=== PATIENT | female | born 1975 | race American Indian/Alaskan Native ===

== ENCOUNTER 2017-04-13 13:17 | Emergency (ER) | payer OTHER ==
[2017-04-13 13:22] VITALS: TEMP 98
[2017-04-13] MEDS ORDERED: Albuterol-Ipratrop 3 mg / 0.5 (3 ml) UD IH STA ×2 (13:46→16:44)
[2017-04-13] MEDS ORDERED: Albuterol-Ipratrop 3 mg / 0.5 (3 ml) UD ONE ×2 (14:02→16:52)
[2017-04-13 14:03] LABS: BASO % 0.9 % (0.0-2.0); EOS # 0.5 K/uL (0.0-0.7); EOS % 8.6 % (0.0-4.0); HEMOGLOBIN 9.7 g/dL (11.0-16.0); LYMPH % 37.9 % (20.0-40.0); MEAN CELL VOLUME 85.4 fL (81.0-99.0); MEAN CORPUSCULAR HEMOGLOBIN 27.7 pg (27.0-31.0); MEAN CORPUSCULAR HGB CONC 32.5 g/dL (33.0-37.0); MEAN PLATELET VOLUME 7.9 fL (7.2-11.7); MONO # 0.4 K/uL (0.0-0.8); MONO % 7.7 % (0.0-10.0); NEUT # 2.4 K/uL (1.8-7.0); NEUT % 44.9 % (50.0-75.0); RBC 3.51 Mil/uL (3.80-5.20); RED CELL DISTRIBUTION WIDTH 16.4 % (11.5-14.5); WHITE BLOOD COUNT 5.3 K/uL (4.8-10.8)
[2017-04-13 14:10] LABS: ALBUMIN 3.3 g/dL (3.5-5.0)
[2017-04-13 14:13] LABS: ALB/GLOB RATIO 1.1 (1.0-2.1); ALT/SGPT 37 U/L (9-52); AST/SGOT 40 U/L (14-36); BLOOD UREA NITROGEN 12 mg/dL (7-17); GFR AFRICAN-AMERICAN > 60; GFR NON-AFRICAN AMERICAN > 60
[2017-04-13 14:14] LABS: CALCIUM 8.1 mg/dl (8.6-10.4)
[2017-04-13 14:17] LABS: INR 2.6
[2017-04-13 14:18] LABS: PROTHROMBIN TIME 30.5 SECONDS (9.7-12.2)
--- NOTE | 2017-04-13 14:38 | C.PDOC ---
History Of Present Illness Pt states she accidentally cut her right palm on an exposed nail in the headboard of her bed. 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) Current Symptoms Are (Timing): Still Present Location Of Injury: Right: Hand (Palm) Severity: Mild Additional History Per: Prior Records Past Medical History Reviewed: Historical Data, Nursing Documentation, Vital Signs Vital Signs: Last Vital Signs Temp 98 F 04/13/17 13:20 Pulse 71 04/13/17 17:17 Resp 14 04/13/17 17:17 BP 140/86 04/13/17 17:17 Pulse Ox 97 04/13/17 17:17 - Medical History PMH: COPD, Deep Vein Thrombosis Other PMH: on Methadone Family History: States: Unknown Family Hx - Social History Hx Tobacco Use: Yes Hx Alcohol Use: No Hx Substance Use: No - Immunization History Hx Tetanus Toxoid Vaccination: No Hx Influenza Vaccination: No Hx Pneumococcal Vaccination: No Review Of Systems Constitutional: Negative for: Fever Cardiovascular: Negative for: Chest Pain Respiratory: Negative for: Hemoptysis Gastrointestinal: Negative for: Vomiting Musculoskeletal: Negative for: Neck Pain Neurological: Negative for: Weakness Psych: Negative for: Suicidal ideation Physical Exam - Physical Exam Appears: Non-toxic, No Acute Distress, Other (Appears under influence of opiate) Skin: Normal Color, Warm, Dry Head: Atraumatic, Normacephalic Eye(s): bilateral: PERRL (but small), EOMI Neck: Normal ROM, No Midline Cervical Tenderness, No Step Off Deformity, Supple Chest: Symmetrical, No Deformity Cardiovascular: Rhythm Regular Respiratory: No Accessory Muscle Use, Wheezing Gastrointestinal/Abdominal: Soft, No Tenderness Extremity: Normal ROM Neurological/Psych: Oriented x3, Normal Motor, Normal Sensation, Slow To Respond With Command ED Course And Treatment - Laboratory Results Result Diagrams: 04/13/17 13:58 04/13/17 13:58 Interpretation Of Abnormal: INR therapeutic O2 Sat by Pulse Oximetry: 100 Pulse Ox Interpretation: Normal - Radiology CXR: Interpreted by Me, Viewed By Me CXR Interpretation: Yes: No Acute Disease Progress Note: Pt is now AAOx3. Steady gait. She denies SOB and wants to go home right now. Reassessment Condition: Improved Laceration - Laceration Repair Right hand Wound Length (In cm): 1 Description Of Wound: Linear Wound Cleansed With: Sterile Saline Wound Examination: No FB With Wound Exploration, No Tendon Injury With Wound Exploration Wound Closure: Skin Glue Wound Complexity: Simple Disposition Counseled Patient/Family Regarding: Studies Performed, Diagnosis, Need For Followup, Smoking Cessation - Disposition Disposition: HOME/ ROUTINE Disposition Time: 17:43 Condition: IMPROVED Additional Instructions: Stop smoking. Follow up with your doctor within 2-3 days for a wound check. Return to the ER if you develop fever, redness, swelling, pus drainage, shortness of breath, worsening of symptoms or if you have any other concerns. Instructions: Laceration (ED), Skin Adhesive Care (ED) Forms: [employer] (Urdu) - Clinical Impression Clinical Impression: Laceration of skin of right palm
[2017-04-13 17:18] VITALS: RESP 14
[2017-04-13 17:24] VITALS: BP 140/86; PULSE 71
[2017-04-13 17:45] VITALS: O2SAT 100
--- NOTE | 2017-04-13 18:27 | RAD ---
HISTORY: Wheezing COMPARISON: None available. TECHNIQUE: Chest, one view. FINDINGS: LUNGS: No focal consolidation. Bilateral 16 mm nodular densities, likely nipple shadows. Please note that chest x-ray has limited sensitivity for the detection of pulmonary masses. PLEURA: No significant pleural effusion identified. No definite pneumothorax . CARDIOVASCULAR: The cardiomediastinal silhouette appears within normal limits of size. OSSEOUS STRUCTURES: No acute osseous abnormality identified. VISUALIZED UPPER ABDOMEN: Unremarkable. OTHER FINDINGS: None. IMPRESSION: No acute findings. See above.
== END 2017-04-13 17:50 | disposition home or self-care (01) ==
LOC: C.ER 13:17
DX: S61.411A Laceration without foreign body of right hand, initial encounter (principal); W45.0XXA Nail entering through skin, initial encounter; Y93.89 Activity, other specified; Y92.003 Bedroom of unspecified non-institutional (private) residence as the place of occurrence of the external cause; Z23 Encounter for immunization

== ENCOUNTER 2017-10-30 18:33 | Emergency (ER) | payer OTHER ==
[2017-10-30] MEDS ORDERED: Iodixanol 320 mg/ml 150 ml Bottle IV ONE (18:43)
[2017-10-30 18:53] LABS: BASO % 0.8 % (0.0-2.0); EOS # 0.2 K/uL (0.0-0.7); EOS % 4.9 % (0.0-4.0); LYMPH % 39.1 % (20.0-40.0); MEAN CELL VOLUME 85.2 fL (81.0-99.0); MEAN CORPUSCULAR HEMOGLOBIN 28.5 pg (27.0-31.0); MEAN CORPUSCULAR HGB CONC 33.4 g/dL (33.0-37.0); MEAN PLATELET VOLUME 7.7 fL (7.2-11.7); MONO # 0.4 K/uL (0.0-0.8); MONO % 8.7 % (0.0-10.0); NEUT # 2.3 K/uL (1.8-7.0); NEUT % 46.5 % (50.0-75.0); RBC 4.15 Mil/uL (3.80-5.20); RED CELL DISTRIBUTION WIDTH 15.7 % (11.5-14.5); WHITE BLOOD COUNT 5.1 K/uL (4.8-10.8)
[2017-10-30 19:01] LABS: HEMOGLOBIN 11.8 g/dL (11.0-16.0)
[2017-10-30 19:05] LABS: ALB/GLOB RATIO 1.2 (1.0-2.1); ALBUMIN 3.7 g/dL (3.5-5.0); ALT/SGPT 25 U/L (9-52); AST/SGOT 25 U/L (14-36); BLOOD UREA NITROGEN 10 mg/dL (7-17); CALCIUM 9.1 mg/dl (8.6-10.4); GFR AFRICAN-AMERICAN > 60; GFR NON-AFRICAN AMERICAN > 60; HDL CHOLESTEROL 57 mg/dL (30-70)
[2017-10-30 19:06] LABS: INR 1.1; PROTHROMBIN TIME 12.1 SECONDS (9.7-12.2)
[2017-10-30 19:16] LABS: LDL CHOLESTEROL 75 mg/dL (0-129)
[2017-10-30] MEDS ORDERED: Aspirin 325 mg EC Tablets PO STA (19:40)
--- NOTE | 2017-10-30 19:54 | C.PDOC ---
History Of Present Illness 42 year old female, with PMHx of cocaine abuse, renal disease, DVT on Coumadin, is brought to ED via ambulance from home at 17:30 for difficulty walking, right arm and leg weakness, and left facial droop in field, which is noticed by daughter who came home from school/work to find her this way. Last seen normal neuro exam approx 0900 before daughter left for school. Pt denies any headache , dizziness, or any other associated symptoms at this time. Pt denies substance abuse. h/o cocaine abuse. Time Seen by Provider: 10/30/17 18:47 Chief Complaint (Nursing): Weakness/Neurological Deficit History Per: Patient, EMS History/Exam Limitations: no limitations Onset/Duration Of Symptoms: Sudden Onset Current Symptoms Are (Timing): Still Present Recent travel outside of the [place]: No Additional History Per: Family - Symptoms Of CVA Associated Symptoms: Decreased Ability To Walk Character Of Deficits: Right: Weakness, Arm: Weakness, Leg: Weakness Past Medical History Reviewed: Historical Data, Nursing Documentation, Vital Signs Vital Signs: Last Vital Signs Temp 97.6 F 10/30/17 21:05 Pulse 55 L 10/30/17 21:05 Resp 16 10/30/17 21:05 BP 156/76 H 10/30/17 21:05 Pulse Ox 91 L 10/31/17 00:36 - Medical History PMH: COPD, Deep Vein Thrombosis Family History: States: Unknown Family Hx - Social History Hx Tobacco Use: Yes Hx Alcohol Use: No Hx Substance Use: No - Immunization History Hx Tetanus Toxoid Vaccination: No Hx Influenza Vaccination: No Hx Pneumococcal Vaccination: No Review Of Systems Constitutional: Negative for: Fever, Chills Cardiovascular: Negative for: Chest Pain, Palpitations Respiratory: Negative for: Cough, Shortness of Breath Gastrointestinal: Negative for: Nausea, Vomiting, Abdominal Pain Neurological: Positive for: Weakness (right arm and leg), Other (facial droop). Negative for: Headache, Dizziness Physical Exam - Physical Exam Appears: Non-toxic, No Acute Distress, Other (black female, appears older than stated age) Skin: Normal Color, Warm, Dry Head: Atraumatic, Normacephalic, Other (moderate right facial droop) Eye(s): bilateral: Normal Inspection, PERRL, EOMI Oral Mucosa: Moist Neck: Normal ROM, Supple Chest: Symmetrical Cardiovascular: Rhythm Regular, No Murmur Respiratory: Normal Breath Sounds, No Rales, No Rhonchi, No Wheezing Gastrointestinal/Abdominal: Soft, No Tenderness Extremity: Capillary Refill (less than 2 seconds), No Deformity, Other (1/5 strength in right arm and leg) Neurological/Psych: Oriented x3 ED Course And Treatment - Laboratory Results Result Diagrams: 10/30/17 18:49 10/30/17 18:49 ECG: Interpreted By Me, Viewed By Me ECG Rhythm: Sinus Rhythm Interpretation Of ECG: T wave inversions in lead II, III, V4-V6 Rate From EC (bpm) O2 Sat by Pulse Oximetry: 91 - CT Scan/US Head Other Rad Studies (CT/US): Interpreted By Me, Read By Radiologist CT/US Interpretation: IMPRESSION: No signs of territorial infarction, focal mass or midline shift. No evidence of edema. Nonspecific small 4 mm hyperdense focus of the right vertex which could represent chronic change,. artifact, although small focal area bleed in this area cannot be excluded. Consider [address] followup to ensure stability. CTA Head Other Rad Studies (CT/US): Interpreted By Me, Read By Radiologist CT/US Interpretation: IMPRESSION: Complete occlusion of the left MCA M1 segment with diminished flow to the second and third order. branches. CTA Neck Other Rad Studies (CT/US): Interpreted By Me, Read By Radiologist CT/US Interpretation: IMPRESSION: No vascular abnormalities no carotid stenosis or dissection. Nonspecific groundglass changes of the. left apex which may represent focal pneumonitis scar. Additional spiculated density is only partially visualized measuring 8.9 mm in the left apex. Left thyroid lobe indeterminate mass. ACR White Paper guidelines (Braden JK, et al. JACR. 2015;12( 2):143-50) suggest further evaluation with thyroid ultrasound. Nodules >8 mm current recommendations include: In a low-risk patient follow-up CT at around 3 , 9, and 24 months, dynamic contrast-enhanced CT,. PET, and/or biopsy. In a high-risk patient same as for low-risk patient. Critical Care Time - Critical Care Note Total Time (in mins): 90 Documented critical care: time excludes all time spent performing seperately billable procedures. NIHSS Stroke Scale 2 - Date/Time Evaluation Performed Date Performed: 10/31/17 Time Performed: 18:40 When Was NIHSS Performed: Code Stroke - How Severe is the Stroke Level of Consciousness: 1=Drowsy LOC to Questions: 2=Neither correct LOC to commands: 1=Obeys one correctly Best Gaze: 0=Normal Visual: 0=No visual loss Facial: 2=Partial (lower face paralysis) Motor Arm - Left: 0=No drift Motor Arm - Right: 3=No effort against gravity (falls immediately) Motor Leg - Left: 0=No drift Motor Leg - Right: 2=Falls before 5 sec Limb Ataxia: 0=Absent Sensory: 0=Normal Best Language: 1=Mild to moderate aphasia Dysarthia: 0=Normal articulation Extinction & Inattention (Neglect): 0=Normal, no object Score: 12 rTPA Inclusion/Exclusion - Refusal of Treatment Patient Refused Treatment: No - Inclusion Criteria for Altepase Patient is 18 years or Older: Yes The Clinical Diagnosis of Ischemic Stroke That is Causing a Potentially Disabling Neurological Deficit: Yes Time of Onset is Well Established to be Less Than 270 Minute Before Treatment Would Begin: No Risk/Benefit Discussed With Patient/Family Member Present: No - Exclusion Criteria for Altepase Uncontrolled Hypertension at Time of Treatment (Systolic BP above 185 or Diastolic BP above 110 mmHg): No Active Internal Bleeding: No Known Bleeding Diathesis Including but Not Limited to: Platelets Below 100,000/ mm,PTT Above 40 sec After Heparin Use, Current Use of Oral Anitcoagulant With INR Greater Than 1.7 or PT Greater Than 15 secs: No Evidence of an Intracranial Hemorrhage: No Suspicion of Subarachnoid Hemorrhage on Pretreatment Evaluation Even if CT Head Negative For Hemorrhage: No - Warning to TPA With Conditions Additional Condition (For 3-4.5 Hour Window): Any anticoagulant use prior to admission (Even if INR less than 1.7) (pt on Coumadin- automatic disqualification for TPA though INR 1.1 (per Neuro) Last seen normal neuro exam > 9 hours ago c/w wakeup stroke.) Medical Decision Making Medical Decision Makin: arrived in ED 1844: Code STroke Called 1849: 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 7:25pm: CT read as negative 7:40pm: CTA read as positive left MCA occlusion Patient has trouble understanding instructions; argumentative (c/w L MCA territory CVA) Right arm and right left strength waxes and wanes between 1/5 and 4/5. 7:50pm: case discussed with Dr. Huang who recommends transferring patient to [place] for intervention. Plan discussed with family and agreed upon. 8:30pm: Dr. Huang accepts patient for transfer, aware of heparin bolus; declines heparin drip. Toxicology results: Positive for opiates, methadone, and cocaine Transfer paperwork completed. Multiple calls to arrange transfer. 9:00pm: On re-eval, patient is easily arousable and confused. Pupils reactive. 9:10pm: ALS arrived. 9:20pm: patient left ER for transfer to [place] ED. Subtheraputic or inconsistent Coumadin therapy (pt w poor insight into Coumadin doses and compliance and INR 1.1) may be MORE coagulable than pt not on Coumadin , plus Cocaine + may be more vasospastic and atherosclerotic and promote CVA Disposition Doctor Will See Patient In The: Hospital Counseled Patient/Family Regarding: Studies Performed, Diagnosis - Disposition Disposition: OTHER INSTITUTION Disposition Time: 21:15 Condition: SERIOUS Forms: [facility] (Thai) - POA Core Measure Indicators: Code Stroke - Clinical Impression Clinical Impression: Acute ischemic left MCA stroke - Scribe Statement The provider has reviewed the documentation as recorded by the Scribaparna Ojeda All medical record entries made by the Scribe were at my direction and personally dictated by me. I have reviewed the chart and agree that the record accurately reflects my personal performance of the history, physical exam, medical decision making, and the department course for this patient. I have also personally directed, reviewed, and agree with the discharge instructions and disposition. Karen Huerta All medical record entries made by the Scribe were at my direction and personally dictated by me. I have reviewed the chart and agree that the record accurately reflects my personal performance of the history, physical exam, medical decision making, and the department course for this patient. I have also personally directed, reviewed, and agree with the discharge instructions and disposition.
[2017-10-30] MEDS ORDERED: Heparin 25,000units in D5W 25,000 UNITS/250 ML BAG IV ONE (19:59)
[2017-10-30] MEDS ORDERED: Aspirin 325 mg EC Tablets PO ONE (20:13)
[2017-10-30 20:19] LABS: HCG,QUALITATIVE URINE NEGATIVE (NEGATIVE)
[2017-10-30 20:20] LABS: SQUAMOUS EPITHIAL 2 /hpf (0-5); URINE BACTERIA RARE (<OCC); URINE BILIRUBIN NEGATIVE (NEGATIVE); URINE BLOOD NEGATIVE (NEGATIVE); URINE CLARITY Clear (Clear); URINE COLOR Yellow (YELLOW); URINE GLUCOSE (UA) NORMAL (Normal); URINE LEUKOCYTE ESTERASE NEG Leu/uL (Negative); URINE NITRATE NEGATIVE (NEGATIVE); URINE PROTEIN NEGATIVE (NEGATIVE); URINE UROBILINOGEN NORMAL mg/dL (0.2-1.0)
[2017-10-30 20:29] LABS: BARBITURATES, UR NEGATIVE (NEGATIVE); BENZODIAZEPINES, UR NEGATIVE (NEGATIVE); PHENCYCLIDINE, UR NEGATIVE (NEGATIVE)
[2017-10-30] MEDS ORDERED: Heparin25000 units/250ml 1/2NS 25,000 UNITS/250 ML BAG IV ONE (20:30)
[2017-10-30 20:31] LABS: OPIATES, UR POSITIVE (NEGATIVE)
--- NOTE | 2017-10-30 20:41 | C.PDOC ---
Time Seen by Provider: 10/30/17 18:47 Chief Complaint (Nursing): Weakness/Neurological Deficit Past Medical History Vital Signs: Last Vital Signs Temp 98.6 F 10/30/17 18:33 Pulse 63 10/30/17 18:33 Resp 20 10/30/17 18:33 BP 150/80 10/30/17 18:33 Pulse Ox 91 L 10/30/17 18:33 - Medical History PMH: COPD, Deep Vein Thrombosis Family History: States: Unknown Family Hx - Social History Hx Tobacco Use: Yes Hx Alcohol Use: No Hx Substance Use: No - Immunization History Hx Tetanus Toxoid Vaccination: No Hx Influenza Vaccination: No Hx Pneumococcal Vaccination: No ED Course And Treatment - Laboratory Results Result Diagrams: 10/30/17 18:49 10/30/17 18:49 O2 Sat by Pulse Oximetry: 91 Disposition - Disposition
[2017-10-30 21:08] VITALS: BP 156/76; PULSE 55; RESP 16; TEMP 97.6
[2017-10-30 21:18] VITALS: O2SAT 91
--- NOTE | 2017-10-31 06:46 | RAD ---
Chest x-ray single frontal view History: Code stroke. Comparison: 04/13/2017 Findings: No focal infiltrate or effusion. Small nodular density in the medial right lower lung zone may represent confluence of shadows with ribs and vessels. Heart size within normal limits. Contrast in the renal collecting systems. Impression: No focal infiltrate or effusion. Additional findings as above
--- NOTE | 2017-10-31 08:38 | CT ---
PROCEDURE: CT HEAD WITHOUT CONTRAST. HISTORY: Code Stroke COMPARISON: None available. TECHNIQUE: Axial computed tomography images were obtained through the head/brain without intravenous contrast. Radiation dose: Total exam DLP = 760.08 mGy-cm. This CT exam was performed using one or more of the following dose reduction techniques: Automated exposure control, adjustment of the mA and/or kV according to patient size, and/or use of iterative reconstruction technique. FINDINGS: HEMORRHAGE: No intracranial hemorrhage. BRAIN: There is a questionable hyperdense left MCA head perisylvian branches. Nevertheless, normal nichols-white matter differentiation and density are appreciated throughout the cerebrum and cerebellum with the brainstem appearing unremarkable as well. There is no mass effect. There is no suspicious extra-axial fluid collection and the midline brain anatomy appears diffusely unremarkable. VENTRICLES: Unremarkable. No hydrocephalus. CALVARIUM: Unremarkable. PARANASAL SINUSES: Unremarkable as visualized. No significant inflammatory changes. MASTOID AIR CELLS: Unremarkable as visualized. No inflammatory changes. OTHER FINDINGS: None. IMPRESSION: Although the brain parenchyma appears grossly within normal limits in terms of cortical and white-matter nichols density and there is no intracranial hemorrhage, density of perisylvian branches of left MCA appears somewhat prominent when compared to the right and thrombosis is not excluded. Please see separate head and neck CT angiogram subsequently also performed on 10/30/2017. Discrepant from V rad preliminary report submitted 10/30/2017 7:18 p.m..
--- NOTE | 2017-10-31 08:55 | CT ---
PROCEDURE: CT Angiography of the Brain. HISTORY: code stroke COMPARISON: Unenhanced head CT 10/30/2017. TECHNIQUE: CT angiography of the intracranial and cervical arteries was performed. Coronal and sagittal maximum intensity projection reformated images were generated. Contrast Dose: Visipaque 320, 100 cc Radiation dose:Total exam DLP = 366.70 mGy-cm This CT exam was performed using one or more of the following dose reduction techniques: Automated exposure control, adjustment of the mA and/or kV according to patient size, and/or use of iterative reconstruction technique. FINDINGS: INTERNAL CEREBRAL ARTERIES: Unremarkable. The skull base, petrous, cavernous and supraclinoid segments are bilaterally widely patent. ANTERIOR CEREBRAL ARTERIES: Unremarkable. A1 and A2 segments are widely patent. Smaller distal branches unremarkable, as visualized. MIDDLE CEREBRAL ARTERIES: There is apparent occlusion of the left M2 MCA branch and multiple left M3 branches with some limited collateralization of more distal branches. The M1 segment appears patent. The right middle cerebral artery is widely patent without stenosis or occlusion. POSTERIOR CIRCULATION: Basilar Artery: Unremarkable. Distal Vertebral Arteries: Unremarkable. Posterior Cerebral Arteries: Unremarkable. Posterior Inferior Cerebellar Arteries: Unremarkable. NECK CTA: Common Carotid arteries: The bilateral common carotid appear widely patent from their origins to their bifurcations with no significant stenosis appreciated. No evidence to suggest common carotid artery dissection. Internal Carotid arteries: No significant stenosis is appreciated throughout the cervical internal carotid artery segments bilaterally and there is no evidence of dissection either. External Carotid arteries: Appear unremarkable bilaterally. Vertebral arteries: The bilateral vertebral arteries appear normal in caliber from their origins to their junction with the basilar artery. No significant stenosis or definite pattern of dissection. ANEURYSM/ VASCULAR MALFORMATIONS: None. OTHER FINDINGS: Incidental small right lobe thyroid nodule. Also, there is a 9 mm regular nodule at the left apex without calcification for which follow-up dedicated chest CT is advised. IMPRESSION: Occluded M2 left MCA branch branches as well as most 3 branches. There is limited collateralization reconstituted flow in distal M3 and perisylvian branches. Remainder of the head and neck CT angiogram is unremarkable. Concordant V rad preliminary report, 10/30/2017 7:35 p.m., findings discussed with Dr. Gonzalez 10/30/2017 11:[address] Hernandez (V rad). Findings discussed with
--- NOTE | 2017-11-05 23:10 | CARD ---
APPROVED REPORT EKG Measurement Heart [id number] <Conclusion> Normal sinus rhythm Possible Left atrial enlargement T wave abnormality, consider lateral ischemia Prolonged QT Abnormal ECG
== END 2017-10-30 21:18 | disposition designated cancer center or children's hospital (05) ==
LOC: C.ER 18:33
DX: I63.512 Cerebral infarction due to unspecified occlusion or stenosis of left middle cerebral artery (principal); R29.810 Facial weakness; G81.91 Hemiplegia, unspecified affecting right dominant side; Z86.718 Personal history of other venous thrombosis and embolism; Z79.01 Long term (current) use of anticoagulants
CPT/HCPCS: 70450; 70496; 70498; 71045; 80053; 80061; 80324; 80345; 80346; 80349; 80353; 80358; 80361; 81001; 83036; 83992; 84484; 84703; 85025; 85610; 85730; 86850; 86900; 96374; 99285; J1644; Q9967

== ENCOUNTER 2017-12-01 14:42 | Emergency (ER) | payer OTHER ==
[2017-12-01] MEDS ORDERED: Albuterol-Ipratrop 3 mg / 0.5 (3 ml) UD ONE ×2 (15:15→16:54)
[2017-12-01] MEDS ORDERED: Albuterol-Ipratrop 3 mg / 0.5 (3 ml) UD INH STA ×2 (15:17→16:35)
[2017-12-01 15:29] LABS: BASO % 0.6 % (0.0-2.0); EOS # 0.4 K/uL (0.0-0.7); EOS % 8.8 % (0.0-4.0); LYMPH # 2.1 K/uL (1.0-4.3); LYMPH % 42.8 % (20.0-40.0); MEAN CELL VOLUME 85.1 fL (81.0-99.0); MEAN CORPUSCULAR HEMOGLOBIN 28.7 pg (27.0-31.0); MEAN CORPUSCULAR HGB CONC 33.7 g/dL (33.0-37.0); MEAN PLATELET VOLUME 7.8 fL (7.2-11.7); MONO # 0.5 K/uL (0.0-0.8); MONO % 10.6 % (0.0-10.0); NEUT # 1.8 K/uL (1.8-7.0); NEUT % 37.2 % (50.0-75.0); NRBC % 0.1 % (0.0-2.0); RBC 3.5 Mil/uL (3.80-5.20); RED CELL DISTRIBUTION WIDTH 16.3 % (11.5-14.5); WHITE BLOOD COUNT 4.9 K/uL (4.8-10.8)
[2017-12-01 15:42] LABS: ALB/GLOB RATIO 1.1 (1.0-2.1); ALBUMIN 3.8 g/dL (3.5-5.0); ALT/SGPT 15 U/L (9-52); AST/SGOT 26 U/L (14-36); BLOOD UREA NITROGEN 11 mg/dL (7-17); CALCIUM 8.7 mg/dl (8.6-10.4); GFR AFRICAN-AMERICAN > 60; GFR NON-AFRICAN AMERICAN > 60
--- NOTE | 2017-12-01 16:45 | RAD ---
HISTORY: COMPARISON: 04/13/2017. TECHNIQUE: Chest PA and lateral FINDINGS: LINES AND TUBES: None. LUNG AND PLEURA: The lungs are hyperinflated and there is peribronchial thickening with chronic changes in both lungs. No focal consolidation. HEART AND MEDIASTINUM: The heart is not enlarged. The hilar and mediastinal contours are within normal limits. SKELETAL STRUCTURES: The bony structures are within normal limits for the patient's age. VISUALIZED UPPER ABDOMEN: Normal. OTHER FINDINGS: None. IMPRESSION: No active pulmonary disease. COPD.
[2017-12-01 17:24] VITALS: BP 119/71; PULSE 68; TEMP 97.8; O2SAT 97
[2017-12-01 17:28] VITALS: RESP 13
--- NOTE | 2017-12-01 17:57 | C.PDOC ---
History Of Present Illness 42 y/o female with a PMHx of asthma presents to the ED with wheezing and SOB for 3 days. She denies any chest pain, dizziness, or fevers. Patient reports using her inhaler at home without relief. (+) Hx of intubation in the past. Time Seen by Provider: 12/01/17 16:10 Chief Complaint (Nursing): Shortness Of Breath History Per: Patient History/Exam Limitations: no limitations Onset/Duration Of Symptoms: Days (x3) Current Symptoms Are (Timing): Still Present Past Medical History Reviewed: Historical Data, Nursing Documentation, Vital Signs Vital Signs: Last Vital Signs Temp 97.8 F 12/01/17 17:23 Pulse 68 12/01/17 17:23 Resp 13 12/01/17 17:23 BP 119/71 12/01/17 17:23 Pulse Ox 97 12/01/17 18:06 - Medical History PMH: Asthma, COPD, Deep Vein Thrombosis Surgical History: No Surg Hx Family History: States: Unknown Family Hx - Social History Hx Tobacco Use: Yes Hx Alcohol Use: No Hx Substance Use: Yes - Immunization History Hx Tetanus Toxoid Vaccination: No Hx Influenza Vaccination: No Hx Pneumococcal Vaccination: No Review Of Systems Except As Marked, All Systems Reviewed And Found Negative. Constitutional: Negative for: Fever, Chills Cardiovascular: Negative for: Chest Pain Respiratory: Positive for: Shortness of Breath, Wheezing Neurological: Negative for: Dizziness Physical Exam - Physical Exam Appears: Non-toxic, No Acute Distress Skin: Normal Color, Warm, Dry Head: Atraumatic, Normacephalic Eye(s): bilateral: Normal Inspection, PERRL, EOMI Nose: Normal Oral Mucosa: Moist Neck: Normal ROM, Supple Chest: Symmetrical Cardiovascular: Rhythm Regular, No Murmur Respiratory: No Accessory Muscle Use, Wheezing (bilaterally), No Other ( respiratory distress) Gastrointestinal/Abdominal: Soft, No Tenderness, No Distention Extremity: Bilateral: Atraumatic, Normal Color And Temperature Neurological/Psych: Oriented x3, Normal Speech ED Course And Treatment - Laboratory Results Result Diagrams: 12/01/17 15:25 12/01/17 15:25 O2 Sat by Pulse Oximetry: 97 - Other Rad CXR X-Ray: Viewed By Me, Read By Radiologist Interpretation: FINDINGS: LINES AND TUBES: None. LUNG AND PLEURA: The lungs are hyperinflated and there is peribronchial thickening with chronic changes in both lungs. No focal consolidation. HEART AND MEDIASTINUM: The heart is not enlarged. The hilar and mediastinal contours are within normal limits. SKELETAL STRUCTURES: The bony structures are within normal limits for the patient's age. VISUALIZED UPPER ABDOMEN: Normal. OTHER FINDINGS: None. IMPRESSION: No active pulmonary disease. COPD. Progress Note: Ordered blood work and chest x-ray. Given duonebs and solu- medrol. On reevaluation, patient reports improvement and wants to go home. Lungs are clear, no respiratory distress. O2 sat is improved on repeat vitals. Patient is stable for discharge home. Reevaluation Time: 17:55 Reassessment Condition: Improved Disposition - Disposition Referrals: Nasir Hernandez MD [Staff Provider] - Disposition: HOME/ ROUTINE Disposition Time: 18:02 Condition: IMPROVED Additional Instructions: Follow up with PMD within 1-2 days. Return to ED if feel worse. Prescriptions: Albuterol 0.083% [Albuterol Sulfate 3 Ml] 3 ml IH .Q4-6H #100 vial predniSONE [predniSONE Tab] 2 tab PO DAILY #8 tab Albuterol HFA [Ventolin HFA 90 mcg/actuation (8 g)] 1 puff IH .Q4-6H #1 inhaler Instructions: Asthma in Adults Forms: [facility] (Thai) - Clinical Impression Clinical Impression: Asthma exacerbation - PA / ANNOUNCER / Resident Statement MD/DO has reviewed & agrees with the documentation as recorded. - Scribe Statement The provider has reviewed the documentation as recorded by the Scribe (Taylor Baron) All medical record entries made by the Scribe were at my direction and personally dictated by me. I have reviewed the chart and agree that the record accurately reflects my personal performance of the history, physical exam, medical decision making, and the department course for this patient. I have also personally directed, reviewed, and agree with the discharge instructions and disposition.
== END 2017-12-01 18:18 | disposition home or self-care (01) ==
LOC: C.ER 14:42
DX: J45.901 Unspecified asthma with (acute) exacerbation (principal)
CPT/HCPCS: 71046; 80053; 85025; 96374; 99284; J2930

== ENCOUNTER 2018-04-04 23:55 | Emergency (ER) | payer OTHER ==
[2018-04-05 00:06] VITALS: TEMP 98.3
[2018-04-05] MEDS ORDERED: Albuterol-Ipratrop 3 mg / 0.5 (3 ml) UD ONE ×4 (00:15→04:38)
--- NOTE | 2018-04-05 00:28 | C.PDOC ---
History Of Present Illness Patient seen tonite due to feeling SOB, history of asthma. Has been using nebulizer at home with no improvement. Time Seen by Provider: 04/05/18 00:26 Chief Complaint (Nursing): Respiratory Distress History Per: Patient History/Exam Limitations: no limitations Onset/Duration Of Symptoms: Hrs Current Symptoms Are (Timing): Still Present Initiating Event: Upper Respiratory Illness Quality: Tightness Exacerbating Factor(s): Coughing Current Respiratory Medications: Albuterol Severity: Moderate Pain Scale Rating Of: 6 Associated Symptoms: Productive Cough (yellowish sputum). denies: Fever, Chills Reports Recently: Seen In ED Recent travel outside of the [place]: No Additional History Per: Patient Past Medical History Vital Signs: Last Vital Signs Temp 98.3 F 04/05/18 00:02 Pulse 89 04/05/18 02:46 Resp 18 04/05/18 02:46 BP 141/97 H 04/05/18 02:46 Pulse Ox 95 04/05/18 02:46 - Medical History PMH: Asthma, COPD, Deep Vein Thrombosis Denies: Chronic Kidney Disease Surgical History: No Surg Hx Family History: States: Unknown Family Hx - Social History Hx Tobacco Use: Yes Hx Alcohol Use: No Hx Substance Use: No - Immunization History Hx Tetanus Toxoid Vaccination: No Hx Influenza Vaccination: No Hx Pneumococcal Vaccination: No Review Of Systems Constitutional: Negative for: Fever, Chills, Sweats, Weakness, Malaise, Weight loss Eyes: Negative for: Pain, Vision Change, Conjunctivae Inflammation ENT: Negative for: Ear Discharge, Nose Pain Cardiovascular: Negative for: Chest Pain, Palpitations, Orthopnea, Paroxysmal Noc. Dyspnea, Edema, Light Headedness Respiratory: Positive for: Cough, Shortness of Breath, Sputum (yellowish sputum) Gastrointestinal: Negative for: Nausea, Vomiting Genitourinary: Negative for: Dysuria, Frequency Musculoskeletal: Negative for: Neck Pain Skin: Negative for: Rash, Lesions Neurological: Negative for: Weakness, Numbness, Incoordination, Change in Speech Psych: Negative for: Anxiety, Depression Physical Exam - Physical Exam Appears: Non-toxic, Other (mildly dyspneic) Skin: Normal Color Nose: Normal, No Flaring Oral Mucosa: Moist Throat: Normal Neck: Normal Chest: Symmetrical, No Deformity, No Tenderness Cardiovascular: Rhythm Regular Respiratory: Rhonchi, Wheezing Gastrointestinal/Abdominal: Normal Exam Back: Normal Inspection Extremity: Normal ROM ED Course And Treatment - Laboratory Results Result Diagrams: 04/05/18 01:20 04/05/18 01:20 O2 Sat by Pulse Oximetry: 96 Disposition Counseled Patient/Family Regarding: Diagnosis - Disposition Referrals: [facility] [Outside] Disposition: HOME/ ROUTINE Disposition Time: 04:43 Condition: IMPROVED Prescriptions: Albuterol 0.5% [Albuterol 0.5% Inhal Ciera (2.5 mg/0.5 ml) UD] 2.5 mg IH Q6 #20 neb Methylprednisolone [Medrol Dose Pack (21 tabs)] 4 mg PO DAILY #21 mg Instructions: Asthma, Adult (DC) Forms: [employer] (Persian) - POA Present On Arrival: None - Clinical Impression Clinical Impression: Exacerbation of asthma
[2018-04-05] MEDS ORDERED: Sodium Chloride 0.9% 1,000 ML IV ONE (00:31)
[2018-04-05] MEDS ORDERED: Albuterol-Ipratrop 3 mg / 0.5 (3 ml) UD INH STA ×3 (00:31→00:32)
[2018-04-05] MEDS ORDERED: Sodium Chloride 0.9% 1,000 ML ONE (01:19)
[2018-04-05 01:23] LABS: BASO # 0.1 K/uL (0.0-0.2); BASO % 0.7 % (0.0-2.0); EOS # 0.4 K/uL (0.0-0.7); EOS % 4.8 % (0.0-4.0); HEMOGLOBIN 11.9 g/dL (11.0-16.0); LYMPH # 1.9 K/uL (1.0-4.3); LYMPH % 24.2 % (20.0-40.0); MEAN CELL VOLUME 87.6 fL (81.0-99.0); MEAN CORPUSCULAR HEMOGLOBIN 28.7 pg (27.0-31.0); MEAN CORPUSCULAR HGB CONC 32.8 g/dL (33.0-37.0); MEAN PLATELET VOLUME 8.8 fL (7.2-11.7); MONO # 0.7 K/uL (0.0-0.8); MONO % 8.8 % (0.0-10.0); NEUT # 4.9 K/uL (1.8-7.0); NEUT % 61.5 % (50.0-75.0); RBC 4.14 Mil/uL (3.80-5.20); RED CELL DISTRIBUTION WIDTH 15.7 % (11.5-14.5)
[2018-04-05 02:01] LABS: ALB/GLOB RATIO 1.6 (1.0-2.1); ALBUMIN 4.9 g/dL (3.5-5.0); ALT/SGPT 34 U/L (9-52); AST/SGOT 31 U/L (14-36); BLOOD UREA NITROGEN 20 mg/dL (7-17); CALCIUM 9.9 mg/dl (8.6-10.4); GFR AFRICAN-AMERICAN > 60; GFR NON-AFRICAN AMERICAN > 60
[2018-04-05 02:12] LABS: B-TYPE NATRIURETIC PEPTIDE 1230 pg/mL (0-450)
[2018-04-05 02:52] VITALS: BP 141/97; PULSE 89; RESP 18
[2018-04-05] MEDS ORDERED: Iodixanol 320 MG/ML 100 ML BOTTLE IV ONE (03:29)
[2018-04-05] MEDS ORDERED: Naproxen 550 mg Tab PO ONE (03:36)
[2018-04-05 04:46] VITALS: O2SAT 96
--- NOTE | 2018-04-05 09:09 | RAD ---
HISTORY: COMPARISON: 12/01/2017 TECHNIQUE: Chest PA and lateral FINDINGS: LINES AND TUBES: None. LUNG AND PLEURA: The lungs are hyperinflated and there is peribronchial thickening with chronic changes in both lungs. No focal consolidation. No pleural effusion or pneumothorax. HEART AND MEDIASTINUM: The heart is not enlarged. The hilar and mediastinal contours are within normal limits. SKELETAL STRUCTURES: The bony structures are within normal limits for the patient's age. VISUALIZED UPPER ABDOMEN: Normal. OTHER FINDINGS: None. IMPRESSION: No active pulmonary disease. COPD.
--- NOTE | 2018-04-05 12:57 | CT ---
Date of service: 04/05/2018 PROCEDURE: CT Chest with contrast (Pulmonary Angiogram) HISTORY: SOB/ elevated D-d COMPARISON: None available. TECHNIQUE: Axial computed tomography images were obtained of the chest in the pulmonary arterial phase of enhancement. Coronal and sagittal reformatted images were created and reviewed. Intravenous contrast dose: 100 mL Visipaque 320 Radiation dose: Total exam DLP = 136.8 mGy-cm. This CT exam was performed using one or more of the following dose reduction techniques: Automated exposure control, adjustment of the mA and/or kV according to patient size, and/or use of iterative reconstruction technique. FINDINGS: PULMONARY ARTERIES: Unremarkable. No pulmonary embolism. AORTA: No acute findings. Common origin of the brachiocephalic and left common carotid arteries. No thoracic aortic aneurysm. LUNGS: Patchy areas consolidation in the left upper lobe. Scattered tree-in-bud opacities in small, ill-defined nodules in the upper lobes, bilaterally, with the largest nodule measuring 7 mm (series 2, image 70). Multiple areas of mild bronchial wall thickening. PLEURAL SPACES: Unremarkable. No effusion or pneumothorax. HEART: Unremarkable. No cardiomegaly. No significant pericardial effusion. LYMPH NODES: No lymphadenopathy. BONES, CHEST WALL: Unremarkable. No fracture or destructive lesion OTHER FINDINGS: Moderate to severe right hydronephrosis. IMPRESSION: Unremarkable CT pulmonary angiogram. No pulmonary embolus. Patchy, multifocal areas of consolidation and tree-in-bud opacities, likely infectious/inflammatory, with scattered areas of mild bronchial wall thickening. Partially imaged moderate to severe right hydronephrosis of uncertain etiology.
--- NOTE | 2018-04-06 14:26 | CARD ---
APPROVED REPORT Date of service: 04/05/2018 EKG Measurement Heart [id number] ID [id number] <Conclusion> Sinus tachycardia Possible Left atrial enlargement Borderline ECG
== END 2018-04-05 05:09 | disposition home or self-care (01) ==
LOC: C.ER 23:55
DX: J45.901 Unspecified asthma with (acute) exacerbation (principal)
CPT/HCPCS: 71046; 71275; 80053; 83880; 84484; 85025; 85378; 93005; 96374; 99284; J2930; J7030; Q9967

== ENCOUNTER 2018-08-29 22:56 | Emergency (ER) | payer OTHER ==
[2018-08-29 23:21] VITALS: PULSE 86
[2018-08-30] MEDS: Albuterol-Ipratrop 3 mg / 0.5 (3 ml) UD IH SCH (00:20)
[2018-08-30] MEDS ORDERED: Albuterol-Ipratrop 3 mg / 0.5 (3 ml) UD ONE (00:25)
--- NOTE | 2018-08-30 00:32 | C.PDOC ---
History Of Present Illness 43 y/o F c PMHx asthma, DVT on warfarin (states gets INR checked weekly and has been good) p/w dyspnea x 2 days. States dyspnea is similar to previous asthma exacerbations. Reports cough productive of yellow sputum. Last intubated 10 years ago. Denies fever, chills, chest pain, vomiting. Time Seen by Provider: 08/29/18 23:33 Chief Complaint (Nursing): Shortness Of Breath Past Medical History Vital Signs: Last Vital Signs Temp 98.6 F 08/29/18 23:17 Pulse 86 08/29/18 23:17 Resp 16 08/29/18 23:36 BP 134/90 08/29/18 23:17 Pulse Ox 98 08/29/18 23:17 - Medical History PMH: Asthma, COPD, Deep Vein Thrombosis Denies: Chronic Kidney Disease Family History: States: Unknown Family Hx - Social History Hx Tobacco Use: Yes Hx Alcohol Use: No Hx Substance Use: No - Immunization History Hx Tetanus Toxoid Vaccination: No Hx Influenza Vaccination: No Hx Pneumococcal Vaccination: No Review Of Systems Except As Marked, All Systems Reviewed And Found Negative. Constitutional: Negative for: Fever Cardiovascular: Negative for: Chest Pain Physical Exam - Physical Exam Additional Physical Exam Comments: Constitutional: No acute distress. Head: Normocephalic. Atraumatic. Eyes: PERRL. ENT: Moist mucous membranes. Neck: Supple. Cardiovascular: Regular rate. Radial pulse 2+ bilaterally. Chest: No tenderness. Respiratory: Wheezing bilaterally. GI: Soft. Nontender. Nondistended. Back: No CVA tenderness. Musculoskeletal: No tenderness or swelling of extremities. Skin: No rash. Neurologic: Alert, no focal deficit. ED Course And Treatment O2 Sat by Pulse Oximetry: 98 Medical Decision Making Medical Decision Making: Duonebs x 3. Prednisone. CXR shows no pneumonia. Patient feels better after treatment and wishes to go home. Discharged home, f/u PMD, instructed to return to ED for worsening breathing or any other problem. Disposition - Disposition Disposition: HOME/ ROUTINE Disposition Time: 02:19 Condition: STABLE Prescriptions: Prednisone [Deltasone] 3 tab PO DAILY #12 tablet Instructions: Asthma in Adults Forms: [employer] ([place]) - Clinical Impression Clinical Impression: Asthma exacerbation
[2018-08-30 02:23] VITALS: BP 130/78; RESP 14; TEMP 97.9; O2SAT 97
--- NOTE | 2018-08-30 10:56 | RAD ---
Date of service: 08/29/2018 HISTORY: Dyspnea. COMPARISON: 04/05/2018 TECHNIQUE: Chest PA and lateral FINDINGS: LUNGS: Inflation. No suspicious pulmonary nodules, masses or infiltrates. PLEURA: No significant pleural effusion identified. No pneumothorax apparent. CARDIOVASCULAR: No aortic atherosclerotic calcification present. Normal cardiac size. No pulmonary vascular congestion. OSSEOUS STRUCTURES: No significant abnormalities. VISUALIZED UPPER ABDOMEN: Normal. OTHER FINDINGS: None. IMPRESSION: No active disease.
== END 2018-08-30 02:24 | disposition home or self-care (01) ==
LOC: C.ER 22:56
DX: J45.901 Unspecified asthma with (acute) exacerbation (principal); Z72.0 Tobacco use